=== PATIENT | female | born 1950 | race Caucasian/White ===

== ENCOUNTER 2016-07-01 13:30 | Outpatient (CLI) | payer MEDICARE, OTHER ==
--- NOTE | 2016-07-01 16:13 | MRI ---
MRI OF RIGHT KNEE PERFORMED WITHOUT CONTRAST ENHANCEMENT: 07/01/16 HISTORY: Knee pain status post fall. The anterior as well as posterior cruciate ligaments are intact. The medial as well as lateral menisci are normal in shape and appearance without any definite signs of acute tear. There are arthritic changes of both the medial and lateral compartments. Articular ca rtilage loss is most severe in the medial femoral condyle. Medial and lateral collateral ligaments a nd iliotibial band regions are unremarkable. Patellar articular cartilage and patellofemoral joint shows severe articular cartilage loss. The pat gloria is somewhat laterally subluxed. The medial and lateral patellar retinaculum are normal in appea gabrielle. There is some tendinotic changes of the patellar tendon. IMPRESSION: 1. No signs of acute meniscal or cruciate ligament tear. 2. Tricompartment arthritic changes. The changes are most pronounced in the patellofemoral join t space. 3. Patellar tendinosis. POS: [facility]
== END 2016-07-01 13:31 | disposition home or self-care (01) ==
LOC: BURMRI 13:30
PROVIDERS: ATTEND Family Medicine
DX: M25.561 Pain in right knee (principal); M76.51 Patellar tendinitis, right knee

== ENCOUNTER 2018-03-11 13:52 | Emergency (ER) | payer MEDICARE, OTHER | END 2018-03-11 14:30 | disposition home or self-care (01) | LOC: BURERS 13:52 | DX: S80.02XA Contusion of left knee, initial encounter (principal); M54.5 Low back pain; I10 Essential (primary) hypertension; Z87.891 Personal history of nicotine dependence; Z79.899 Other long term (current) drug therapy; W17.89XA Other fall from one level to another, initial encounter | CPT/HCPCS: 99283 ==

== ENCOUNTER 2018-12-05 14:56 | Emergency (ER) | payer MEDICARE, OTHER ==
--- NOTE | 2018-12-05 16:51 | RAD ---
LEFT KNEE 4 VIEWS: Date: 12/05/18 No acute fracture or joint effusion seen. There are some degenerative changes consisting of osteophyt es. Faint meniscal calcifications are present and there is probably calcification in one of the cruci ate ligaments. Old trauma may be a possibility. There are some bony densities posterior to the knee. The larger one resembles a fabella, though it is hard to see it on the frontal views. None of these f indings appear acute, and the lack of joint fluid mitigates towards that. IMPRESSION: Old changes and mild degeneration. No definite acute bony findings. POS: [facility]
== END 2018-12-05 16:15 | disposition home or self-care (01) ==
LOC: BURERS 14:56
DX: S80.02XA Contusion of left knee, initial encounter (principal); I10 Essential (primary) hypertension; K50.90 Crohn's disease, unspecified, without complications; Z79.82 Long term (current) use of aspirin; Z87.891 Personal history of nicotine dependence; Z79.899 Other long term (current) drug therapy; W01.0XXA Fall on same level from slipping, tripping and stumbling without subsequent striking against object, initial encounter

== ENCOUNTER 2020-09-25 11:50 | Emergency (ER) | payer MEDICARE, OTHER ==
[2020-09-25 12:17] LABS: #Basophils 0.1 thou/uL (0.0-0.2); #Eosinphils 0.2 thou/uL (0.0-0.7); #Lymphocytes 1.4 thou/uL (1.20-3.40); #Monocytes 0.6 thou/uL (0.11-0.59); #Neutrophils 4.7 thou/uL (1.40-6.50); %Basophils 1.4 % (0.0-1.0); %Eosinophils 2.5 % (0.0-10.0); %Lymphocytes 20.1 % (21.0-51.0); %Monocytes 9.2 % (0.0-10.0); %Neutrophils 66.8 % (42.0-75.0); Hemoglobin 13.1 g/dL (12.0-16.0); Mean Corpuscular HGB CONC 32.4 g/dL (32.0-36.0); Mean Corpuscular Hemoglobin 30.1 pg (27.0-31.0); Mean Corpuscular Volume 92.9 fL (78.0-98.0); Mean Platelet Volume 7.2 fL (7.4-10.4); Platelet Count 288 thou/uL (130-400); RBC Distribution Width 14.1 % (11.5-14.5); Red Blood Cell (RBC) Count 4.36 mill/uL (4.20-5.40)
[2020-09-25 12:35] LABS: ALT (SGPT) 24 U/L (8-55); AST (SGOT) 27 U/L (5-34); Albumin 4.1 g/dL (3.4-4.8); Alkaline Phosphatase 80 U/L (40-110); Anion Gap 17 mmol/L (10-20); BUN (Urea Nitrogen) 15 mg/dL (9.8-20.1); Bilirubin, Total 0.6 mg/dL (0.2-1.2); Calc. Creatinine Clearance 0 mL/min (70-130); Calcium 9.4 mg/dL (7.8-10.44); Carbon Dioxide 23 mmol/L (23-31); Chloride 108 mmol/L (98-107); Glucose 111 mg/dL (83-110); Magnesium 2.1 mg/dL (1.6-2.6); Potassium 3.6 mmol/L (3.5-5.1); Protein, Total 7.1 g/dL (5.8-8.1); Sodium 144 mmol/L (136-145)
== END 2020-09-25 13:19 | disposition home or self-care (01) ==
LOC: BURERS 11:50
DX: I47.1 Supraventricular tachycardia (principal); I10 Essential (primary) hypertension; Z87.891 Personal history of nicotine dependence; Z79.899 Other long term (current) drug therapy; Z79.82 Long term (current) use of aspirin
CPT/HCPCS: 71045; 80053; 83735; 83880; 84443; 84484; 85025; 93005